=== PATIENT | male | born 1930 | race Caucasian/White ===

== ENCOUNTER 2019-04-21 19:23 | Inpatient (IN) | payer OTHER ==
[~2019-04-21] VITALS: Ht 188 cm; Wt 103.4 kg
[2019-04-21 19:25] VITALS: BP 144/75
[2019-04-21] MEDS ORDERED: ELIQUIS5 MG PO (20:47)
[2019-04-21 21:05] LABS: URINE BILIRUBIN NEGATIVE (Negative); URINE BLOOD NEGATIVE (Negative); URINE CLARITY CLEAR; URINE COLOR YELLOW; URINE GLUCOSE-RANDOM* NEGATIVE (Negative); URINE KETONES NEGATIVE (Negative); URINE LEUKOCYTES-REFLEX NEGATIVE (Negative); URINE NITRITE-REFLEX NEGATIVE (Negative); URINE PROTEIN (DIPSTICK) TRACE (Negative)
[2019-04-21 21:17] LABS: HEMATOCRIT 35.3 % (42.0-52.0); MCHC 33.9 g/dL (28.0-37.0); MCV 91.4 fL (80.0-100.0); PLATELET COUNT 243 thou/uL (150-400); RBC 3.86 mil/uL (4.50-6.00); RDW 13.5 % (10.5-14.5)
[2019-04-21 21:26] LABS: ANION GAP 9 mmol/L (7-16); BUN 20 mg/dL (7-18); CALCIUM 8.9 mg/dL (8.5-10.1); CHLORIDE 103 mmol/L (98-107); CO2 22 mmol/L (21-32); CREATININE 1.3 mg/dL (0.7-1.3); GLUCOSE 98 mg/dL (74-106); POTASSIUM 3.8 mmol/L (3.5-5.1); SODIUM 134 mmol/L (136-145)
[2019-04-21 21:37] LABS: SGOT 10 U/L (15-37); SGPT 21 U/L (30-65); TOTAL BILIRUBIN 0.7 mg/dL (<0.1-1.0); TOTAL PROTEIN 6.9 g/dL (6.4-8.2); TROPONIN-I <0.06 ng/mL (<0.06)
[2019-04-21] MEDS ORDERED: CARDIZEM CD240 MG PO (21:44)
[2019-04-21 21:53] LABS: ABSOLUTE NEUTROPHILS 5.2 thou/uL (1.4-8.2)
[2019-04-21 21:54] LABS: ANISOCYTOSIS 1+; POLYCHROMASIA OCCASIONAL
[2019-04-21 22:02] VITALS: BP 141/76
--- NOTE | 2019-04-21 22:02 | NUR ---
HAND OFF TOOL SENT TO FLOOR
[2019-04-21 22:11] VITALS: BP 155/83
[2019-04-21 22:41] VITALS: BP 158/84
[2019-04-22 05:15] VITALS: BP 147/76
--- NOTE | 2019-04-22 05:28 | NUR ---
ASSUMED CARE OF PT AT 1900HRS. PT IS ALERT BUT ONLY ORIENTED TO SELF AND SITUATION. CHAPA IS PATIENT. PT TURNED EVERY 2-3HRS. FALL PRECAUTION IN PLACE. PT WAS ABLE TO SLEEP PART OF THE SHIFT. NO S/S OF ACUTE DISTRESS. WILL CONTINUE TO MONITOR.
--- NOTE | 2019-04-22 06:02 | NUR ---
ASSUMED CARE OF PT AT 2230HRS. PT IS ALERT BUT ORIENTED TO SELF, TIME AND SITUATION. PT IS KAW AND HAS A WEAK VISION EVEN WITH GLASSES. PT WAS ORIENTED TO THE ROOM AND THE UNIT. PT MAY REQUIRE REINFORCEMENT. GITA (SON) HELPED WITH ADMISSION QUESTIONS. THE NIGHT PROGRESSED, PT WAS ABLE TO GET COMFORTABLE AND SLEEP. NO S/S OF ACUTE DISTRESS. WILL CONTINUE TO MONITOR.
[2019-04-22 07:57] VITALS: BP 138/50
[2019-04-22 09:11] LABS: TSH 1.295 uIU/mL (0.358-3.740)
--- NOTE | 2019-04-22 09:19 | EKG ---
[address] [facility] [place] [address] ELECTROCARDIOGRAM REPORT Name: MARGARITA BANKS Room #: 452-P ADM IN M.R.#: [id number] ������������������ Admission: 04/21/19 ������������������ Attend Phys: Dianna Liao Discharge: ������������������ Date of : [birth year] Report #: [id number] ����������������������������������������������������������������� [id number] THIS REPORT FOR: //name// [facility] ED Test Date: 2019-04-21 Test Time: 19:29:21 Pat Name: MARGARITA BANKS Department: Room: [facility] Gender: M Natural Resources Specialist: ESTEBAN : 1930 Requested By: Alesha Deutsch Order Number: [id number] MD: Ramo Thrasher Measurements Intervals [place] Rate: 84 P: 66 WA: 195 QRS: -42 QRSD: 102 T: 74 QT: 380 QTc: 450 Interpretive Statements Sinus arrhythmia Left anterior fascicular block Abnormal R-wave progression, early transition No previous ECG available for comparison Electronically Signed On 04-22-2019 9:19:16 CDT by Ramo Thrasher [email or web address] ��������������������������������������������� <ELECTRONICALLY SIGNED> ���������������������������������������� By: Ramo Thrasher MD, [facility] ��������������������������������������������� 04/22/19918 28 28 Rmao Thrasher MD, FACC /EPI
[2019-04-22 10:59] VITALS: BP 138/50
--- NOTE | 2019-04-22 11:32 | NUR ---
PT STABLE THIS MORNING. PT INSISTED HE "HAD TO GO HOME TODAY". PT DISCHARGED TODAY, GIVEN DC INSTRUCTIONS. PT LEFT VIA WHEELCHAIR TO PRIVATE VEHICLE.
== END 2019-04-22 11:58 | disposition home or self-care (01) | DRG 640 ==
LOC: ER 19:23 → EROBS 21:50 → 4W 21:50 → ENTRNSPT 04-22 11:20 → EDTRNSPTSTS 04-22 11:41 → 4W 04-22 11:58
PROVIDERS: Physician Assistant; ADMIT Hospitalist
DX: E86.0 Dehydration (principal); G93.41 Metabolic encephalopathy; E46 Unspecified protein-calorie malnutrition; I48.2 Chronic atrial fibrillation; Z85.850 Personal history of malignant neoplasm of thyroid; Z85.72 Personal history of non-Hodgkin lymphomas; Z79.899 Other long term (current) drug therapy; Z68.29 Body mass index [BMI] 29.0-29.9, adult
CPT/HCPCS: 10040